=== PATIENT | female | born 1935 | race Caucasian/White ===

== ENCOUNTER 2017-08-19 17:31 | Emergency (ER) | payer MEDICARE, OTHER, MEDICAID ==
[2017-08-19] MEDS: SOD CHLORIDE 0.9% 1,000 ML IV (17:51)
[2017-08-19] MEDS: FAMOTIDINE 20 MG INJ IV (17:51)
[2017-08-19] MEDS: ONDANSETRON 4 MG INJ IV (17:51)
[2017-08-19 18:17] LABS: ADD MAN DIFF? NO
[2017-08-19 18:20] LABS: BASOPHILS % 0.7 % (0.0-2.0); EOSINOPHILS # 0.1 10^3/ul (0.0-0.5); EOSINOPHILS % 2.2 % (0.0-7.0); HEMATOCRIT 38.8 % (37.0-47.0); LYMPHOCYTES # 1.5 10^3/ul (0.8-2.9); LYMPHOCYTES % 28.7 % (15.0-51.0); MEAN CORPUSCULAR HEMOGLOBIN 29.4 pg (29.0-33.0); MEAN CORPUSCULAR HGB CONC 33.5 g/dl (32.0-37.0); MEAN CORPUSCULAR VOLUME 87.8 fl (82.0-101.0); MEAN PLATELET VOLUME 10.8 fl (7.4-10.4); MONOCYTE # 0.5 10^3/ul (0.3-0.9); NEUTROPHIL # 3.2 10^3/ul (1.6-7.5); NEUTROPHILS % 59.2 % (39.0-77.0); PLATELET COUNT 226 10^3/UL (140-415); RED BLOOD COUNT 4.42 10^6/ul (4.20-5.40); RED CELL DISTRIBUTION WIDTH 12.2 % (11.5-14.5)
[2017-08-19 18:20] LABS: WHITE BLOOD COUNT 5.3 10^3/ul (4.8-10.8)
[2017-08-19 18:41] LABS: ALANINE AMINOTRANSFERASE 19 IU/L (13-69); ALBUMIN 4.3 g/dl (3.3-4.9); ALBUMIN/GLOBULIN RATIO 1.13; ALKALINE PHOSPHATASE 96 IU/L (42-121); ANION GAP 18 (8-16); ASPARTATE AMINO TRANSFERASE 17 IU/L (15-46); BILIRUBIN,INDIRECT 0.4 mg/dl (0-1.1); BILIRUBIN,TOTAL 0.4 mg/dl (0.2-1.3); BLOOD UREA NITROGEN 10 mg/dl (7-20); CALCIUM 9.1 mg/dl (8.4-10.2); CARBON DIOXIDE 29 mmol/L (21-31); CHLORIDE 102 mmol/L (97-110); GLUCOSE 132 mg/dl (70-220); LIPASE 47 U/L (23-300); SODIUM 145 mmol/L (135-144); TOTAL PROTEIN 8.1 g/dl (6.1-8.1)
[2017-08-19 18:43] LABS: INR 0.93; PROTIME 12.5 Sec (11.9-14.9)
[2017-08-19 18:44] LABS: PARTIAL THROMBOPLASTIN TIME 27.1 Sec (25.0-35.0)
[2017-08-19 18:53] LABS: TROPONIN-I < 0.012 ng/ml (0.000-0.120)
[2017-08-19] MEDS: ASPIRIN 81 MG TAB PO (19:22)
[2017-08-19] MEDS ORDERED: ACETAMINOPHEN 325 MG TAB PO (19:30)
[2017-08-19] MEDS ORDERED: ALBUTEROL HFA 8 GM INHALER INH (19:30)
[2017-08-19] MEDS ORDERED: ONDANSETRON 4 MG INJ IV ×2 (19:30→19:35)
[2017-08-19] MEDS ORDERED: ZOLPIDEM 5 MG TAB PO (20:00)
[2017-08-19] MEDS ORDERED: AMLODIPINE 5 MG TAB PO (20:00)
[2017-08-19] MEDS ORDERED: MONTELUKAST 10 MG TAB PO (21:00)
[2017-08-20] MEDS ORDERED: ESCITALOPRAM 10 MG TAB PO (09:00)
[2017-08-20] MEDS ORDERED: ISOSORBIDE MONONITRATE(SR)30 MG TAB PO (09:00)
[2017-08-20] MEDS ORDERED: AMIODARONE 200 MG TAB PO (09:00)
== END 2017-08-19 19:38 | disposition left against medical advice (07) ==
LOC: E/R 17:31
DX: R07.89 Other chest pain (principal); R53.1 Weakness; R11.2 Nausea with vomiting, unspecified; I10 Essential (primary) hypertension
CPT/HCPCS: 36415; 71045; 80053; 83690; 84484; 85025; 85610; 85730; 96374; 96375; 99285-25